=== PATIENT | male | born 1950 | race Caucasian/White ===

== ENCOUNTER 2016-04-18 10:30 | Inpatient (IN) | payer OTHER ==
[2016-04-18] VITALS (10 sets, daily range): BP systolic 100–157; BP diastolic 61–87
[~2016-04-18 10:30] MED LIST: ADVAIR 500/501 DISK IH; ATARAX,VISTARIL50 MG PO; Avelox PO; CONTRAVE ER 8-1 EACH PO; CYANOCOBALAM1000 MCG PO; Ceftin PO; DULERA 200 MCG/13 GM IH; DUONEB 2.5-0.5 M3 ML IH; DuoNeb IH; FUROSEMIDE40 MG PO; Habitrol,Nicoderm CQ TD; K-DUR10 MEQ PO; KLOR-CON 1010 ME1 PO; LEVAQUIN500 MG PO; LO-DOSE ASPIRIN81 M1 PO; Levaquin PO; PREDNISONE20 MG PO; PROAIR HFA8.5 GM IH; PROVENTIL,2.5 MG/0.5 IH; Proventil,Ventolin H IH; SPIRIVA1 INHALATI IH; THEO-DUR,THEOC300 MG PO; THEOPHYLLINE A300 M1 PO; THEOPHYLLINE PO; Theo-Dur,Theocron PO; VENTOLIN5 MG/1 ML IH; predniSONE PO
[2016-04-18 11:04] LABS: EOSINOPHIL (%) 0 % (0-5); HEMATOCRIT 41.7 % (38.0-50.0); IMMATURE GRANULOCYTE (%) 0.5 % (0.0-0.7); IMMATURE GRANULOCYTE COUNT 0.6 K/uL; MCH 32.4 PG (29.0-34.0); MCHC 29.7 G/DL (30.0-36.0); MCV 108.9 FL (86-99); MEAN PLAT.VOLUME 9.8 uM^3 (9.0-12.4); MONOCYTE (%) 10.5 % (3-12); MONOCYTE COUNT 1.3 K/uL (0-0.8); NEUTROPHIL (%) 81.1 % (45-76); NEUTROPHIL COUNT 10.2 K/uL (1.8-6.4); PLATELET COUNT 305 K/uL (156-360); RBC DIS.WIDTH-CV 13.7 % (11.8-14.6); RBC DIS.WIDTH-SD 53.1 % (39-53); RED BLOOD COUNT 3.83 M/uL (4.00-5.50); WHITE BLOOD COUNT 12.5 K/uL (4.1-10.2)
[2016-04-18 11:14] LABS: VENOUS PCO2 111 mm Hg (41-51)
[2016-04-18 11:15] LABS: CARBON DIOXIDE (BICARBONATE) > 40.0 MEQ/L (20-31)
[2016-04-18 11:27] LABS: TROP-I INTERPRETATION NEGATIVE; TROPONIN-I 0.02 ng/mL (0.0-0.30)
[2016-04-18 11:52] LABS: CHLORIDE 91 mEq/L (99-109)
[2016-04-18 11:53] LABS: MAGNESIUM 2.9 mg/dL (1.3-2.7); SODIUM 139 mEq/L (136-147)
[2016-04-18 11:54] LABS: GLUCOSE 195 mg/dL (70-99)
[2016-04-18 11:56] LABS: ANION GAP 11 MEQ/L (2-14)
[2016-04-18 11:58] LABS: GFR ESTIMATE (CALCULATED) > 59 mL/min/
[2016-04-18 11:59] LABS: UREA NITROGEN (BUN) 19 mg/dL (9-23)
[2016-04-18 12:27] LABS: BASE EXCESS 13.8 mEq/L (-3 to +3); BICARBONATE 46.2 mEq/L (22-26); CARBOXY HGB 2.5 % (0-5); COMMENTS - BLOOD GASES A+; DEVICE NIV; FI02 40 %; METHEMOGLOBIN 1.1 % (0-1.5); MODE SPONT; PCO2 113 mm Hg (35-45); PO2 83 mm Hg (80-100); SITE LR; pH 7.22 (7.35-7.45)
[2016-04-18 12:28] LABS: PEEP 8 CM/H20; PRES. SUPPORT 15 CM/H2O; TOTAL RESP RATE 12 resp/min
[2016-04-18 13:29] LABS: D-DIMER ELISA 1.91 mg/L FEU (< 0.57)
[2016-04-18 17:11] LABS: BASE EXCESS 19.2 mEq/L (-3 to +3); BICARBONATE 49.1 mEq/L (22-26); CARBOXY HGB 2.4 % (0-5); METHEMOGLOBIN 1.7 % (0-1.5)
[2016-04-18 17:12] LABS: COMMENTS - BLOOD GASES AC+; CONTINUOUS POS AIRWAY PRESSURE 8 cm H2O; DEVICE 840 VENTILATOR; FI02 35 %; MODE NIPPV; PCO2 89 mm Hg (35-45); PO2 64 mm Hg (80-100); PRES. SUPPORT 15 CM/H2O; SITE LR; TOTAL RESP RATE 22 resp/min; pH 7.35 (7.35-7.45)
[2016-04-18 17:58] LABS: METH RESISTANT S AUREUS PCR NEGATIVE (NEGATIVE)
[2016-04-18 18:00] LABS: PROBE CHECK PASS; SPECIMEN PROCESSING CONTROL PASS
[2016-04-18 19:06] LABS: TROP-I INTERPRETATION NEGATIVE; TROPONIN-I 0.02 ng/mL (0.0-0.30)
[2016-04-19] VITALS (21 sets, daily range): BP systolic 100–144; BP diastolic 33–93
[2016-04-19 01:29] LABS: TROP-I INTERPRETATION NEGATIVE; TROPONIN-I < 0.01 ng/mL (0.0-0.30)
[2016-04-19 06:07] LABS: HEMATOCRIT 37.3 % (38.0-50.0); MCH 31.6 PG (29.0-34.0); MCHC 29.5 G/DL (30.0-36.0); MCV 107.2 FL (86-99); PLATELET COUNT 275 K/uL (156-360); RED BLOOD COUNT 3.48 M/uL (4.00-5.50); WHITE BLOOD COUNT 9.7 K/uL (4.1-10.2)
[2016-04-19 06:34] LABS: TROP-I INTERPRETATION NEGATIVE; TROPONIN-I 0.02 ng/mL (0.0-0.30)
[2016-04-19 06:41] LABS: ANION GAP ND MEQ/L (2-14); CHLORIDE 90 MEQ/L (99-109); GFR ESTIMATE (CALCULATED) > 59 mL/min/; GLUCOSE 162 mg/dL (70-99); MAGNESIUM 2.6 mg/dl (1.3-2.7); POTASSIUM 4.9 MEQ/L (3.7-5.4); SAMPLE HEMOLYSIS CHECK 0; SAMPLE ICTERIC CHECK 0; SAMPLE LIPEMIA CHECK 0; SODIUM 138 MEQ/L (136-147); UREA NITROGEN (BUN) 21 mg/dL (9-23)
[2016-04-19 06:45] LABS: CARBON DIOXIDE (BICARBONATE) > 40.0 MEQ/L (20-31)
[2016-04-20] VITALS (14 sets, daily range): BP systolic 118–164; BP diastolic 59–82
[2016-04-20 05:55] LABS: HEMATOCRIT 38.6 % (38.0-50.0); MCH 32.4 PG (29.0-34.0); MCHC 30.3 G/DL (30.0-36.0); MCV 106.9 FL (86-99); PLATELET COUNT 279 K/uL (156-360); RBC DIS.WIDTH-CV 13.8 % (11.8-14.6); RBC DIS.WIDTH-SD 54.3 % (39-53); RED BLOOD COUNT 3.61 M/uL (4.00-5.50); WHITE BLOOD COUNT 10.7 K/uL (4.1-10.2)
[2016-04-20 06:33] LABS: ANION GAP ND MEQ/L (2-14); CARBON DIOXIDE (BICARBONATE) > 40.0 MEQ/L (20-31); CHLORIDE 90 MEQ/L (99-109); GFR ESTIMATE (CALCULATED) > 59 mL/min/; GLUCOSE 169 mg/dL (70-99); MAGNESIUM 2.8 mg/dl (1.3-2.7); POTASSIUM 5.2 MEQ/L (3.7-5.4); SAMPLE HEMOLYSIS CHECK 0; SAMPLE ICTERIC CHECK 0; SAMPLE LIPEMIA CHECK 0; SODIUM 140 MEQ/L (136-147); UREA NITROGEN (BUN) 21 mg/dL (9-23)
[2016-04-20 06:39] LABS: THEOPHYLLINE 25.3 MCG/ML (10-20)
[2016-04-20 07:02] LABS: DIGOXIN 0.6 ng/mL (0.8-2.0)
[2016-04-21] VITALS (19 sets, daily range): BP systolic 110–153; BP diastolic 54–120
[2016-04-21 07:53] LABS: EOSINOPHIL (%) 0 % (0-5); HEMATOCRIT 43.4 % (38.0-50.0); IMMATURE GRANULOCYTE (%) 0.8 % (0.0-0.7); IMMATURE GRANULOCYTE COUNT 0.1 K/uL; LYMPHOCYTE COUNT 0.5 K/uL (1.0-2.8); MCH 31.9 PG (29.0-34.0); MCHC 28.3 G/DL (30.0-36.0); MEAN PLAT.VOLUME 9.9 uM^3 (9.0-12.4); MONOCYTE (%) 6.5 % (3-12); MONOCYTE COUNT 0.6 K/uL (0-0.8); NEUTROPHIL COUNT 8.5 K/uL (1.8-6.4); PLATELET COUNT 286 K/uL (156-360); RBC DIS.WIDTH-SD 56.8 % (39-53); RED BLOOD COUNT 3.86 M/uL (4.00-5.50); WHITE BLOOD COUNT 9.7 K/uL (4.1-10.2)
[2016-04-21 07:54] LABS: MCV 112.4 FL (86-99)
[2016-04-21 07:59] LABS: ANION GAP ND MEQ/L (2-14); CHLORIDE 91 MEQ/L (99-109); GFR ESTIMATE (CALCULATED) > 59 mL/min/; GLUCOSE 160 mg/dL (70-99); MAGNESIUM 2.8 mg/dl (1.3-2.7); POTASSIUM 5.8 MEQ/L (3.7-5.4); SAMPLE HEMOLYSIS CHECK 0; SAMPLE ICTERIC CHECK 0; SAMPLE LIPEMIA CHECK 0; SODIUM 142 MEQ/L (136-147); THEOPHYLLINE 12.9 MCG/ML (10-20); UREA NITROGEN (BUN) 27 mg/dL (9-23)
[2016-04-21 08:03] LABS: CARBON DIOXIDE (BICARBONATE) > 40.0 MEQ/L (20-31)
[2016-04-21 09:07] LABS: CARBOXY HGB 2.5 % (0-5); METHEMOGLOBIN 1.7 % (0-1.5); PCO2 > 129 mm Hg (35-45); PO2 93 mm Hg (80-100)
[2016-04-21 09:07] LABS: DIGOXIN 0.4 ng/mL (0.8-2.0)
[2016-04-21 09:08] LABS: COMMENTS - BLOOD GASES C+; DEVICE HFNC; O2 FLOW 15 L/MIN; SITE RR; TOTAL RESP RATE 20 resp/min; pH 7.21 (7.35-7.45)
[2016-04-21 11:51] LABS: BASE EXCESS 23.2 mEq/L (-3 to +3); BICARBONATE 54.1 mEq/L (22-26); CARBOXY HGB 2.5 % (0-5); COMMENTS - BLOOD GASES C+; CONTINUOUS POS AIRWAY PRESSURE 8 cm H2O; DEVICE MASK VENT; FI02 40 %; METHEMOGLOBIN 1.8 % (0-1.5); MODE SPONT; PCO2 98 mm Hg (35-45); PO2 65 mm Hg (80-100); PRES. SUPPORT 15 CM/H2O; SITE LR; TOTAL RESP RATE 26 resp/min; pH 7.35 (7.35-7.45)
[2016-04-21 12:47] LABS: CREATINE KINASE 22 IU/L (1-294); TOTAL CK 22 IU/L (1-294)
[2016-04-21 12:49] LABS: CK-MB 1.3 ng/mL (0.0-4.9); TROP-I INTERPRETATION NEGATIVE; TROPONIN-I < 0.01 ng/mL (0.0-0.30)
[2016-04-21 17:10] LABS: CREATINE KINASE 32 IU/L (1-294); TOTAL CK 32 IU/L (1-294)
[2016-04-21 17:17] LABS: TROP-I INTERPRETATION NEGATIVE; TROPONIN-I < 0.01 ng/mL (0.0-0.30)
[2016-04-21 23:22] LABS: CREATINE KINASE 23 IU/L (1-294); TOTAL CK 23 IU/L (1-294)
[2016-04-21 23:27] LABS: TROP-I INTERPRETATION NEGATIVE; TROPONIN-I 0.01 ng/mL (0.0-0.30)
[2016-04-21 23:28] LABS: CK-MB 0.8 ng/mL (0.0-4.9)
[2016-04-22] VITALS (20 sets, daily range): BP systolic 117–160; BP diastolic 52–84
[2016-04-22 05:10] LABS: CHLORIDE 93 mEq/L (99-109); POTASSIUM 5.3 mEq/L (3.7-5.4); SODIUM 140 mEq/L (136-147)
[2016-04-22 05:12] LABS: GLUCOSE 191 mg/dL (70-99)
[2016-04-22 05:13] LABS: ANION GAP 7 MEQ/L (2-14)
[2016-04-22 05:16] LABS: GFR ESTIMATE (CALCULATED) > 59 mL/min/
[2016-04-22 05:17] LABS: UREA NITROGEN (BUN) 30 mg/dL (9-23)
[2016-04-22 05:18] LABS: CREATINE KINASE 18 IU/L (1-294); TOTAL CK 18 IU/L (1-294)
[2016-04-22 05:21] LABS: TROP-I INTERPRETATION NEGATIVE; TROPONIN-I 0.02 ng/mL (0.0-0.30)
[2016-04-22 05:25] LABS: CK-MB 0.8 ng/mL (0.0-4.9)
[2016-04-22 09:51] LABS: MAGNESIUM 3.3 mg/dL (1.3-2.7)
[2016-04-23] VITALS (14 sets, daily range): BP systolic 113–164; BP diastolic 42–76
[2016-04-23 07:00] LABS: HEMATOCRIT 40.4 % (38.0-50.0); MCH 31.3 PG (29.0-34.0); MCV 104.7 FL (86-99); MEAN PLAT.VOLUME 9.7 uM^3 (9.0-12.4); PLATELET COUNT 247 K/uL (156-360); RBC DIS.WIDTH-CV 13.9 % (11.8-14.6); RBC DIS.WIDTH-SD 53.3 % (39-53); RED BLOOD COUNT 3.86 M/uL (4.00-5.50); WHITE BLOOD COUNT 4.7 K/uL (4.1-10.2)
[2016-04-23 07:10] LABS: ANION GAP 4 MEQ/L (2-14); CHLORIDE 95 MEQ/L (99-109); GFR ESTIMATE (CALCULATED) > 59 mL/min/; GLUCOSE 203 mg/dL (70-99); MAGNESIUM 2.4 mg/dl (1.3-2.7); POTASSIUM 4.4 MEQ/L (3.7-5.4); SAMPLE HEMOLYSIS CHECK 0; SAMPLE ICTERIC CHECK 0; SAMPLE LIPEMIA CHECK 0; SODIUM 139 MEQ/L (136-147); UREA NITROGEN (BUN) 29 mg/dL (9-23)
[2016-04-24] VITALS (12 sets, daily range): BP systolic 0–160; BP diastolic 0–73
[2016-04-24 06:03] LABS: HEMATOCRIT 44.3 % (38.0-50.0); MCH 31.3 PG (29.0-34.0); MCHC 29.3 G/DL (30.0-36.0); MCV 106.7 FL (86-99); MEAN PLAT.VOLUME 9.7 uM^3 (9.0-12.4); PLATELET COUNT 273 K/uL (156-360); RBC DIS.WIDTH-CV 13.7 % (11.8-14.6); RBC DIS.WIDTH-SD 53.6 % (39-53); RED BLOOD COUNT 4.15 M/uL (4.00-5.50); WHITE BLOOD COUNT 5.7 K/uL (4.1-10.2)
[2016-04-24 07:09] LABS: ANION GAP 6 MEQ/L (2-14); CHLORIDE 94 MEQ/L (99-109); GFR ESTIMATE (CALCULATED) > 59 mL/min/; GLUCOSE 214 mg/dL (70-99); MAGNESIUM 2.6 mg/dl (1.3-2.7); POTASSIUM 4.7 MEQ/L (3.7-5.4); SAMPLE HEMOLYSIS CHECK 0; SAMPLE ICTERIC CHECK 0; SAMPLE LIPEMIA CHECK 0; SODIUM 140 MEQ/L (136-147); UREA NITROGEN (BUN) 38 mg/dL (9-23)
[2016-04-24 10:19] LABS: BASE EXCESS 18.3 mEq/L (-3 to +3); BICARBONATE 52.3 mEq/L (22-26); CARBOXY HGB 2.4 % (0-5); COMMENTS - BLOOD GASES A+C+; DEVICE NC; METHEMOGLOBIN 1.8 % (0-1.5); O2 FLOW 4 L/MIN; PCO2 125 mm Hg (35-45); PO2 69 mm Hg (80-100); SITE LR; TOTAL RESP RATE 28 resp/min
[2016-04-24 10:20] LABS: pH 7.23 (7.35-7.45)
[2016-04-25] VITALS (20 sets, daily range): BP systolic 110–166; BP diastolic 47–81
[2016-04-25 05:50] LABS: HEMATOCRIT 43.6 % (38.0-50.0); MCHC 29.6 G/DL (30.0-36.0); MCV 104.8 FL (86-99); MEAN PLAT.VOLUME 10.3 uM^3 (9.0-12.4); PLATELET COUNT 241 K/uL (156-360); RBC DIS.WIDTH-CV 13.6 % (11.8-14.6); RBC DIS.WIDTH-SD 51.9 % (39-53); RED BLOOD COUNT 4.16 M/uL (4.00-5.50); WHITE BLOOD COUNT 4.8 K/uL (4.1-10.2)
[2016-04-25 06:59] LABS: ANION GAP 8 MEQ/L (2-14); CHLORIDE 93 MEQ/L (99-109); GFR ESTIMATE (CALCULATED) > 59 mL/min/; GLUCOSE 253 mg/dL (70-99); MAGNESIUM 2.5 mg/dl (1.3-2.7); POTASSIUM 4.3 MEQ/L (3.7-5.4); SAMPLE HEMOLYSIS CHECK 0; SAMPLE ICTERIC CHECK 0; SAMPLE LIPEMIA CHECK 0; SODIUM 141 MEQ/L (136-147); UREA NITROGEN (BUN) 33 mg/dL (9-23)
[2016-04-25 12:17] LABS: BASE EXCESS 20.2 mEq/L (-3 to +3); BICARBONATE 50.8 mEq/L (22-26); CARBOXY HGB 2.4 % (0-5); METHEMOGLOBIN 1.6 % (0-1.5); PO2 60 mm Hg (80-100)
[2016-04-25 12:18] LABS: COMMENTS - BLOOD GASES A+C+; DEVICE NC; O2 FLOW 3 L/MIN; PCO2 90 mm Hg (35-45); SITE LR; TOTAL RESP RATE 23 resp/min; pH 7.36 (7.35-7.45)
[2016-04-26] VITALS (16 sets, daily range): BP systolic 111–165; BP diastolic 41–70
[2016-04-26 06:16] LABS: HEMATOCRIT 42.9 % (38.0-50.0); MCH 30.8 PG (29.0-34.0); MCHC 29.6 G/DL (30.0-36.0); MCV 103.9 FL (86-99); MEAN PLAT.VOLUME 10.3 uM^3 (9.0-12.4); PLATELET COUNT 204 K/uL (156-360); RBC DIS.WIDTH-CV 13.7 % (11.8-14.6); RBC DIS.WIDTH-SD 51.4 % (39-53); RED BLOOD COUNT 4.13 M/uL (4.00-5.50)
[2016-04-26 06:20] LABS: WHITE BLOOD COUNT 6.4 K/uL (4.1-10.2)
[2016-04-26 06:25] LABS: ANION GAP ND MEQ/L (2-14); CARBON DIOXIDE (BICARBONATE) > 40.0 MEQ/L (20-31); CHLORIDE 91 MEQ/L (99-109); GFR ESTIMATE (CALCULATED) > 59 mL/min/; GLUCOSE 274 mg/dL (70-99); MAGNESIUM 2.3 mg/dl (1.3-2.7); POTASSIUM 3.8 MEQ/L (3.7-5.4); SAMPLE HEMOLYSIS CHECK 0; SAMPLE ICTERIC CHECK 0; SAMPLE LIPEMIA CHECK 0; SODIUM 141 MEQ/L (136-147); UREA NITROGEN (BUN) 30 mg/dL (9-23)
[2016-04-27] VITALS (15 sets, daily range): BP systolic 113–164; BP diastolic 41–74
[2016-04-27 05:29] LABS: HEMATOCRIT 43.3 % (38.0-50.0); MCH 31.9 PG (29.0-34.0); MCHC 30.3 G/DL (30.0-36.0); MCV 105.4 FL (86-99); MEAN PLAT.VOLUME 11.1 uM^3 (9.0-12.4); PLATELET COUNT 185 K/uL (156-360); RBC DIS.WIDTH-CV 13.4 % (11.8-14.6); RBC DIS.WIDTH-SD 51.6 % (39-53); RED BLOOD COUNT 4.11 M/uL (4.00-5.50)
[2016-04-27 05:59] LABS: ANION GAP ND MEQ/L (2-14); CHLORIDE 90 MEQ/L (99-109); GFR ESTIMATE (CALCULATED) > 59 mL/min/; GLUCOSE 310 mg/dL (70-99); MAGNESIUM 2.3 mg/dl (1.3-2.7); POTASSIUM 3.9 MEQ/L (3.7-5.4); SAMPLE HEMOLYSIS CHECK 0; SAMPLE ICTERIC CHECK 0; SAMPLE LIPEMIA CHECK 0; SODIUM 141 MEQ/L (136-147); UREA NITROGEN (BUN) 31 mg/dL (9-23)
[2016-04-27 06:02] LABS: CARBON DIOXIDE (BICARBONATE) > 40.0 MEQ/L (20-31)
[2016-04-27 22:14] LABS: POINT-OF-CARE METER ID UU13113748
[2016-04-28] VITALS (10 sets, daily range): BP systolic 129–162; BP diastolic 50–105
[2016-04-28 05:30] LABS: POINT-OF-CARE METER ID UU13113748
[2016-04-28 06:08] LABS: HEMATOCRIT 44.9 % (38.0-50.0); MCH 31.8 PG (29.0-34.0); MCHC 30.1 G/DL (30.0-36.0); MCV 105.9 FL (86-99); MEAN PLAT.VOLUME 11.7 uM^3 (9.0-12.4); PLATELET COUNT 167 K/uL (156-360); RBC DIS.WIDTH-CV 13.5 % (11.8-14.6); RBC DIS.WIDTH-SD 52.3 % (39-53); RED BLOOD COUNT 4.24 M/uL (4.00-5.50); WHITE BLOOD COUNT 7.6 K/uL (4.1-10.2)
[2016-04-28 06:37] LABS: ANION GAP ND MEQ/L (2-14); CHLORIDE 90 MEQ/L (99-109); GFR ESTIMATE (CALCULATED) > 59 mL/min/; GLUCOSE 276 mg/dL (70-99); MAGNESIUM 2.4 mg/dl (1.3-2.7); POTASSIUM 3.8 MEQ/L (3.7-5.4); SAMPLE HEMOLYSIS CHECK 0; SAMPLE ICTERIC CHECK 0; SAMPLE LIPEMIA CHECK 0; SODIUM 143 MEQ/L (136-147); UREA NITROGEN (BUN) 30 mg/dL (9-23)
[2016-04-28 06:38] LABS: CARBON DIOXIDE (BICARBONATE) > 40.0 MEQ/L (20-31)
[2016-04-28 08:27] LABS: POINT-OF-CARE METER ID UU13113748
[2016-04-29] VITALS: BP 139/69
[2016-04-29 04:00] VITALS: BP 150/64
[2016-04-29 05:29] LABS: MCH 31.1 PG (29.0-34.0); MCHC 28.7 G/DL (30.0-36.0); MCV 108.2 FL (86-99); MEAN PLAT.VOLUME 11.4 uM^3 (9.0-12.4); PLATELET COUNT 141 K/uL (156-360); RBC DIS.WIDTH-CV 13.5 % (11.8-14.6); RBC DIS.WIDTH-SD 53.2 % (39-53); RED BLOOD COUNT 4.25 M/uL (4.00-5.50); WHITE BLOOD COUNT 9.8 K/uL (4.1-10.2)
[2016-04-29 06:11] LABS: ANION GAP ND MEQ/L (2-14); CHLORIDE 89 MEQ/L (99-109); GFR ESTIMATE (CALCULATED) > 59 mL/min/; GLUCOSE 208 mg/dL (70-99); MAGNESIUM 2.4 mg/dl (1.3-2.7); POTASSIUM 3.7 MEQ/L (3.7-5.4); SAMPLE HEMOLYSIS CHECK 0; SAMPLE ICTERIC CHECK 0; SAMPLE LIPEMIA CHECK 0; SODIUM 144 MEQ/L (136-147); UREA NITROGEN (BUN) 31 mg/dL (9-23)
[2016-04-29 06:20] LABS: CARBON DIOXIDE (BICARBONATE) > 40.0 MEQ/L (20-31)
[2016-04-29 08:00] VITALS: BP 149/61
[2016-04-29 12:00] VITALS: BP 142/61
[2016-04-29 12:22] LABS: POINT-OF-CARE METER ID UU14162636
[2016-04-29 16:00] VITALS: BP 148/76
[2016-04-29 18:01] LABS: POINT-OF-CARE METER ID UU14162636
[2016-04-29 20:00] VITALS: BP 139/63
[2016-04-29 21:54] LABS: POINT-OF-CARE METER ID UU14162636
[2016-04-30] VITALS: BP 134/65
[2016-04-30 04:10] VITALS: BP 151/65
[2016-04-30 04:53] LABS: HEMATOCRIT 45.1 % (38.0-50.0); MCH 31.9 PG (29.0-34.0); MCHC 29.9 G/DL (30.0-36.0); MCV 106.6 FL (86-99); MEAN PLAT.VOLUME 11.3 uM^3 (9.0-12.4); PLATELET COUNT 126 K/uL (156-360); RBC DIS.WIDTH-CV 13.5 % (11.8-14.6); RBC DIS.WIDTH-SD 52.6 % (39-53); RED BLOOD COUNT 4.23 M/uL (4.00-5.50); WHITE BLOOD COUNT 10.8 K/uL (4.1-10.2)
[2016-04-30 05:07] LABS: CHLORIDE 88 mEq/L (99-109); POTASSIUM 4.7 mEq/L (3.7-5.4); SODIUM 147 mEq/L (136-147)
[2016-04-30 05:08] LABS: MAGNESIUM 2.5 mg/dL (1.3-2.7)
[2016-04-30 05:09] LABS: GLUCOSE 169 mg/dL (70-99)
[2016-04-30 05:13] LABS: GFR ESTIMATE (CALCULATED) > 59 mL/min/
[2016-04-30 05:14] LABS: UREA NITROGEN (BUN) 31 mg/dL (9-23)
[2016-04-30 05:16] LABS: CARBON DIOXIDE (BICARBONATE) > 40.0 mEq/L (20-31)
[2016-04-30 05:25] LABS: DIGOXIN 0.7 ng/mL (0.8-2.0)
[2016-04-30 08:00] VITALS: BP 135/62
[2016-04-30 08:31] LABS: POINT-OF-CARE METER ID UU13113731
[2016-04-30 12:00] VITALS: BP 128/31
[2016-04-30 16:00] VITALS: BP 140/53
[2016-04-30 16:57] LABS: POINT-OF-CARE METER ID UU13113731
[2016-04-30 20:00] VITALS: BP 144/52
[2016-04-30 21:20] LABS: POINT-OF-CARE METER ID UU13113731; POINT-OF-CARE USER ID PHATLC
[2016-05-01] VITALS (7 sets, daily range): BP systolic 115–147; BP diastolic 43–72
[2016-05-01 07:43] LABS: ANION GAP ND MEQ/L (2-14); CHLORIDE 86 MEQ/L (99-109); GFR ESTIMATE (CALCULATED) > 59 mL/min/; GLUCOSE 167 mg/dL (70-99); POTASSIUM 3.9 MEQ/L (3.7-5.4); SAMPLE HEMOLYSIS CHECK 0; SAMPLE ICTERIC CHECK 0; SAMPLE LIPEMIA CHECK 0; SODIUM 143 MEQ/L (136-147); UREA NITROGEN (BUN) 26 mg/dL (9-23)
[2016-05-01 07:44] LABS: CARBON DIOXIDE (BICARBONATE) > 40.0 MEQ/L (20-31)
[2016-05-01 10:57] LABS: POINT-OF-CARE METER ID UU14174216
[2016-05-01 16:03] LABS: POINT-OF-CARE METER ID UU14174216
[2016-05-02 03:40] VITALS: BP 148/68
[2016-05-02 07:53] LABS: POINT-OF-CARE METER ID UU13113698
[2016-05-02 09:00] VITALS: BP 121/58
[2016-05-02 10:53] LABS: POINT-OF-CARE METER ID UU13113698
[2016-05-02 12:21] VITALS: BP 134/63
[2016-05-02 15:33] VITALS: BP 143/66
[2016-05-02 15:45] LABS: POINT-OF-CARE METER ID UU13113698
[2016-05-02 18:52] VITALS: BP 142/66
[2016-05-03 00:01] VITALS: BP 131/64
[2016-05-03 04:06] VITALS: BP 132/64
[2016-05-03 06:40] LABS: HEMATOCRIT 44.4 % (38.0-50.0); MCH 31.6 PG (29.0-34.0); MCHC 29.3 G/DL (30.0-36.0); MCV 107.8 FL (86-99); MEAN PLAT.VOLUME 11.8 uM^3 (9.0-12.4); PLATELET COUNT 114 K/uL (156-360); RBC DIS.WIDTH-CV 13.7 % (11.8-14.6); RBC DIS.WIDTH-SD 53.7 % (39-53); RED BLOOD COUNT 4.12 M/uL (4.00-5.50); WHITE BLOOD COUNT 9.7 K/uL (4.1-10.2)
[2016-05-03 06:59] LABS: BASE EXCESS 29.7 mEq/L (-3 to +3); CARBOXY HGB 3.4 % (0-5); COMMENTS - BLOOD GASES A+C+; DEVICE NC; METHEMOGLOBIN 1.4 % (0-1.5); O2 FLOW 3 L/MIN; PCO2 94 mm Hg (35-45); PO2 71 mm Hg (80-100); SITE RR; TOTAL RESP RATE 22 resp/min; pH 7.42 (7.35-7.45)
[2016-05-03 07:10] LABS: ANION GAP ND MEQ/L (2-14); CHLORIDE 85 MEQ/L (99-109); GFR ESTIMATE (CALCULATED) > 59 mL/min/; GLUCOSE 131 mg/dL (70-99); POTASSIUM 4.1 MEQ/L (3.7-5.4); SAMPLE HEMOLYSIS CHECK 1; SAMPLE ICTERIC CHECK 0; SAMPLE LIPEMIA CHECK 0; SODIUM 141 MEQ/L (136-147); UREA NITROGEN (BUN) 21 mg/dL (9-23)
[2016-05-03 07:28] LABS: CARBON DIOXIDE (BICARBONATE) > 40.0 MEQ/L (20-31)
[2016-05-03 08:07] LABS: POINT-OF-CARE METER ID UU14174216; POINT-OF-CARE USER ID NUTSLF44
[2016-05-03 08:20] VITALS: BP 125/66
[2016-05-03 11:46] LABS: POINT-OF-CARE METER ID UU14174216; POINT-OF-CARE USER ID NUTSLF44
[2016-05-03 12:07] VITALS: BP 129/61
[2016-05-03 16:04] VITALS: BP 132/64
[2016-05-03 19:20] VITALS: BP 126/58
[2016-05-03 22:03] LABS: POINT-OF-CARE METER ID UU14149396
[2016-05-04] VITALS: BP 132/60
[2016-05-04 08:08] VITALS: BP 118/55
[2016-05-04 08:18] LABS: POINT-OF-CARE METER ID UU13113807
[2016-05-04 12:25] LABS: POINT-OF-CARE METER ID UU14149398; POINT-OF-CARE USER ID 606021404
[2016-05-04 16:27] VITALS: BP 116/59
[2016-05-04 16:55] LABS: POINT-OF-CARE METER ID UU13113807
[2016-05-04 21:00] VITALS: BP 125/78
[2016-05-04 21:55] LABS: POINT-OF-CARE METER ID UU14149398
[2016-05-04 23:35] VITALS: BP 131/63
[2016-05-05 04:00] VITALS: BP 132/85
[2016-05-05 08:16] LABS: POINT-OF-CARE METER ID UU14149398
[2016-05-05 08:23] VITALS: BP 128/60
[2016-05-05 09:00] LABS: ANION GAP ND MEQ/L (2-14); CHLORIDE 86 MEQ/L (99-109); GFR ESTIMATE (CALCULATED) > 59 mL/min/; GLUCOSE 146 mg/dL (70-99); POTASSIUM 3.9 MEQ/L (3.7-5.4); SAMPLE HEMOLYSIS CHECK 0; SAMPLE ICTERIC CHECK 0; SAMPLE LIPEMIA CHECK 0; SODIUM 142 MEQ/L (136-147); THEOPHYLLINE < 2.5 MCG/ML (10-20); UREA NITROGEN (BUN) 18 mg/dL (9-23)
[2016-05-05 09:05] LABS: CARBON DIOXIDE (BICARBONATE) > 40.0 MEQ/L (20-31)
[2016-05-05 12:12] LABS: BASE EXCESS 31.2 mEq/L (-3 to +3); BICARBONATE 64.6 mEq/L (22-26); CARBOXY HGB 3.2 % (0-5); METHEMOGLOBIN 1.4 % (0-1.5); PCO2 117 mm Hg (35-45); PO2 58 mm Hg (80-100); pH 7.35 (7.35-7.45)
[2016-05-05 12:13] LABS: COMMENTS - BLOOD GASES A+C+; DEVICE NC; O2 FLOW 3 L/MIN; SITE RR
[2016-05-05 12:35] LABS: POINT-OF-CARE METER ID UU14149398
[2016-05-05 16:19] LABS: POINT-OF-CARE METER ID UU14149398
[2016-05-05 17:11] VITALS: BP 105/56
[2016-05-05 21:57] LABS: POINT-OF-CARE METER ID UU14149398
[2016-05-06 00:50] VITALS: BP 144/73
[2016-05-06 08:08] VITALS: BP 154/65
[2016-05-06 08:40] LABS: POINT-OF-CARE METER ID UU13113807
[2016-05-06 10:35] LABS: BASE EXCESS 28.6 mEq/L (-3 to +3); BICARBONATE 61.5 mEq/L (22-26); CARBOXY HGB 3.6 % (0-5); METHEMOGLOBIN 1.4 % (0-1.5); O2 FLOW 3 L/MIN; PCO2 114 mm Hg (35-45); PO2 57 mm Hg (80-100); SITE RR; pH 7.34 (7.35-7.45)
[2016-05-06 10:36] LABS: DEVICE NC
[2016-05-06 12:10] LABS: POINT-OF-CARE METER ID UU14149398
[2016-05-06 16:14] VITALS: BP 135/69
[2016-05-06 16:28] LABS: POINT-OF-CARE METER ID UU14149398
[2016-05-06 20:00] VITALS: BP 137/61
[2016-05-06 21:48] LABS: POINT-OF-CARE METER ID UU13113807
[2016-05-07] VITALS: BP 140/70
[2016-05-07 07:54] VITALS: BP 137/73
[2016-05-07 08:24] LABS: POINT-OF-CARE METER ID UU14149398
[2016-05-07 11:30] VITALS: BP 133/59
[2016-05-07 11:33] VITALS: BP 145/76
[2016-05-07 12:28] LABS: POINT-OF-CARE METER ID UU14149398
[2016-05-07 15:32] VITALS: BP 123/68
[2016-05-07 17:01] LABS: POINT-OF-CARE METER ID UU14149398
[2016-05-07 21:00] LABS: POINT-OF-CARE METER ID UU14149398
[2016-05-08] VITALS: BP 128/68
[2016-05-08 06:31] LABS: ANION GAP ND MEQ/L (2-14); CHLORIDE 87 MEQ/L (99-109); GFR ESTIMATE (CALCULATED) > 59 mL/min/; GLUCOSE 130 mg/dL (70-99); POTASSIUM 4.1 MEQ/L (3.7-5.4); SAMPLE HEMOLYSIS CHECK 0; SAMPLE ICTERIC CHECK 0; SAMPLE LIPEMIA CHECK 0; SODIUM 145 MEQ/L (136-147); UREA NITROGEN (BUN) 19 mg/dL (9-23)
[2016-05-08 06:32] LABS: CARBON DIOXIDE (BICARBONATE) > 40.0 MEQ/L (20-31)
[2016-05-08 06:35] LABS: EOSINOPHIL (%) 0.8 % (0-5); EOSINOPHIL COUNT 0.1 K/uL (0-0.3); HEMATOCRIT 42.4 % (38.0-50.0); IMMATURE GRANULOCYTE (%) 0.2 % (0.0-0.7); LYMPHOCYTE COUNT 0.9 K/uL (1.0-2.8); MCHC 28.3 G/DL (30.0-36.0); MCV 109.6 FL (86-99); MEAN PLAT.VOLUME 11.7 uM^3 (9.0-12.4); MONOCYTE (%) 6.2 % (3-12); MONOCYTE COUNT 0.4 K/uL (0-0.8); NEUTROPHIL (%) 78.2 % (45-76); NEUTROPHIL COUNT 4.9 K/uL (1.8-6.4); PLATELET COUNT 91 K/uL (156-360); RBC DIS.WIDTH-CV 13.8 % (11.8-14.6); RBC DIS.WIDTH-SD 55.3 % (39-53); RED BLOOD COUNT 3.87 M/uL (4.00-5.50)
[2016-05-08 06:36] LABS: WHITE BLOOD COUNT 6.3 K/uL (4.1-10.2)
[2016-05-08 07:24] VITALS: BP 130/61
[2016-05-08 07:37] LABS: POINT-OF-CARE METER ID UU13113807
[2016-05-08 11:40] VITALS: BP 120/85
[2016-05-08 11:55] LABS: POINT-OF-CARE METER ID UU13113807
[2016-05-08 15:25] VITALS: BP 126/62
[2016-05-08 17:22] LABS: POINT-OF-CARE METER ID UU13113807
[2016-05-08 21:22] LABS: POINT-OF-CARE METER ID UU13113807
[2016-05-08 23:49] VITALS: BP 126/61
[2016-05-09 07:40] VITALS: BP 142/80
[2016-05-09 08:32] LABS: POINT-OF-CARE METER ID UU13113807
[2016-05-09 11:44] VITALS: BP 128/55
[2016-05-09 11:48] LABS: POINT-OF-CARE METER ID UU13113807
[2016-05-09 15:51] VITALS: BP 136/73
[2016-05-09 17:05] LABS: POINT-OF-CARE METER ID UU13113807
[2016-05-09 19:56] VITALS: BP 136/63
[2016-05-09 20:03] LABS: POINT-OF-CARE METER ID UU13113807
[2016-05-10 00:02] VITALS: BP 120/62
[2016-05-10 08:11] LABS: POINT-OF-CARE METER ID UU13113807
[2016-05-10 08:13] VITALS: BP 136/61
[2016-05-10 11:58] VITALS: BP 123/56
[2016-05-10 13:12] LABS: POINT-OF-CARE METER ID UU13113807
[2016-05-10 16:00] VITALS: BP 109/55
[2016-05-10 17:18] LABS: POINT-OF-CARE METER ID UU13113807
[2016-05-10 21:32] LABS: POINT-OF-CARE METER ID UU13113807
[2016-05-11 00:04] VITALS: BP 132/63
[2016-05-11 07:42] LABS: POINT-OF-CARE METER ID UU13113807
[2016-05-11 08:00] VITALS: BP 126/61
[2016-05-11 11:57] LABS: POINT-OF-CARE METER ID UU14149396
[2016-05-11 12:00] VITALS: BP 108/57
[2016-05-11 16:00] VITALS: BP 123/57
[2016-05-11 16:57] LABS: POINT-OF-CARE METER ID UU13113807
[2016-05-11 20:30] VITALS: BP 145/78
[2016-05-11 23:11] LABS: POINT-OF-CARE METER ID UU13113807; POINT-OF-CARE USER ID AHSUCEG
[2016-05-12] VITALS: BP 132/63
[2016-05-12 04:00] VITALS: BP 145/78
[2016-05-12 06:53] LABS: HEMATOCRIT 41.2 % (38.0-50.0); MCH 31.3 PG (29.0-34.0); MCHC 29.1 G/DL (30.0-36.0); MCV 107.3 FL (86-99); MEAN PLAT.VOLUME 11.2 uM^3 (9.0-12.4); PLATELET COUNT 103 K/uL (156-360); RBC DIS.WIDTH-CV 13.6 % (11.8-14.6); RBC DIS.WIDTH-SD 53.2 % (39-53); RED BLOOD COUNT 3.84 M/uL (4.00-5.50); WHITE BLOOD COUNT 5.8 K/uL (4.1-10.2)
[2016-05-12 08:31] LABS: POINT-OF-CARE METER ID UU13113807
[2016-05-12 08:55] VITALS: BP 119/57
[2016-05-12 09:51] LABS: ANION GAP ND MEQ/L (2-14); CHLORIDE 88 MEQ/L (99-109); GFR ESTIMATE (CALCULATED) > 59 mL/min/; GLUCOSE 146 mg/dL (70-99); POTASSIUM 4.1 MEQ/L (3.7-5.4); SAMPLE HEMOLYSIS CHECK 0; SAMPLE ICTERIC CHECK 0; SAMPLE LIPEMIA CHECK 0; SODIUM 141 MEQ/L (136-147); UREA NITROGEN (BUN) 18 mg/dL (9-23)
[2016-05-12 09:52] LABS: CARBON DIOXIDE (BICARBONATE) > 40.0 MEQ/L (20-31)
[2016-05-12 12:07] LABS: POINT-OF-CARE METER ID UU14149398
[2016-05-12 15:45] LABS: POINT-OF-CARE METER ID UU14149398
[2016-05-12 16:54] VITALS: BP 127/60
[2016-05-12 22:22] LABS: POINT-OF-CARE METER ID UU14149398
[2016-05-12 23:25] VITALS: BP 133/61
[2016-05-13 08:47] LABS: POINT-OF-CARE METER ID UU14149398
[2016-05-13 09:12] VITALS: BP 133/69
[2016-05-13 12:42] LABS: POINT-OF-CARE METER ID UU14149398
[2016-05-13 12:52] VITALS: BP 138/67
[2016-05-13 16:43] LABS: POINT-OF-CARE METER ID UU14149398
[2016-05-13 17:01] VITALS: BP 128/60
[2016-05-13 20:11] VITALS: BP 137/64
[2016-05-13 21:51] LABS: POINT-OF-CARE METER ID UU14149398
[2016-05-14 00:04] VITALS: BP 133/58
[2016-05-14 03:51] VITALS: BP 148/66
[2016-05-14 08:17] VITALS: BP 140/57
[2016-05-14 09:01] LABS: POINT-OF-CARE METER ID UU14149398
[2016-05-14 12:24] LABS: POINT-OF-CARE METER ID UU14149398
[2016-05-14 15:48] VITALS: BP 135/62
[2016-05-14 16:57] LABS: POINT-OF-CARE METER ID UU14149398
[2016-05-14 21:00] VITALS: BP 125/74
[2016-05-14 21:07] LABS: POINT-OF-CARE METER ID UU14149398
[2016-05-14 23:20] VITALS: BP 131/66
[2016-05-15 09:29] LABS: POINT-OF-CARE METER ID UU14149398; POINT-OF-CARE USER ID 606021404
[2016-05-15 09:58] VITALS: BP 127/59
[2016-05-15 11:48] LABS: POINT-OF-CARE METER ID UU14149398
[2016-05-15] MEDS ORDERED: DOXYCYCLINE HY100 M3 PO (12:44)
[2016-05-15] MEDS ORDERED: SPIRIVA RESPIMAT4 GM IH (12:44)
[2016-05-15] MEDS ORDERED: ELIQUIS5 MG PO (12:45)
[2016-05-15] MEDS ORDERED: CARDIZEM CD,CA240 MG PO (12:46)
[2016-05-15] MEDS ORDERED: DIGOXIN250 MCG PO (12:46)
[2016-05-15] MEDS ORDERED: MUCINEX600 MG PO (12:48)
[2016-05-15] MEDS ORDERED: FUROSEMIDE40 MG PO (12:48)
[2016-05-15] MEDS ORDERED: MODAFINIL100 MG PO (12:48)
[2016-05-15] MEDS ORDERED: THEOPHYLLINE400 MG PO (12:49)
[2016-05-15] MEDS ORDERED: PREDNISONE20 MG PO (12:49)
== END 2016-05-15 15:45 | DRG 189 ==
LOC: EME 10:30 → 4WEST 13:07 → 4EAST 13:07 → EDOF 13:07 → 4SOUTH 13:07 → 4WEST 14:22 → 4EAST 05-01 03:56 → 4SOUTH 05-03 19:29
PROVIDERS: Emergency Medicine; Family Medicine; Internal Medicine Nephrology; Internal Medicine Pulmonary Disease
PROC: 5A09357 Assistance with Respiratory Ventilation, Less than 24 Consecutive Hours, Continuous Positive Airway Pressure (ICD-10-PCS; principal; 2016-04-18)
DX: J96.22 Acute and chronic respiratory failure with hypercapnia (principal); G93.40 Encephalopathy, unspecified; J96.21 Acute and chronic respiratory failure with hypoxia; I48.3 Typical atrial flutter; J44.1 Chronic obstructive pulmonary disease with (acute) exacerbation; Z68.43 Body mass index [BMI] 50.0-59.9, adult; B37.0 Candidal stomatitis; J44.0 Chronic obstructive pulmonary disease with (acute) lower respiratory infection; E11.9 Type 2 diabetes mellitus without complications; E66.01 Morbid (severe) obesity due to excess calories; E87.5 Hyperkalemia; D53.9 Nutritional anemia, unspecified; I48.2 Chronic atrial fibrillation; Z87.891 Personal history of nicotine dependence; G47.33 Obstructive sleep apnea (adult) (pediatric); J20.9 Acute bronchitis, unspecified; Z99.81 Dependence on supplemental oxygen; R60.9 Edema, unspecified; I27.81 Cor pulmonale (chronic)
CPT/HCPCS: 36600; 71010; 71020; 71275; 80048; 80162; 80198; 82550; 82550 91; 82553; 82803; 82948; 83605; 83735; 83880; 84100; 84443; 84484; 85025; 85027; 85379; 87040; 87641; 93005; 93306; 94002; 94003; 94010; 94640; 94640 76; 94644; 94645; 94660; 94667; 94668; 94760; 94799; 97530 GO; 97530 GP; 99202; 99281; 99284; J0692; J1120; J1160; J1650; J1815; J1940; J2920; J2930; J3475; J7050; J7512

== ENCOUNTER 2017-05-19 13:31 | Inpatient (IN) | payer OTHER ==
[~2017-05-19] VITALS: Ht 167.6 cm; Wt 127.6 kg
[~2017-05-19 13:31] MED LIST changes: +ASPIR 8181 M1 PO; +CARDIZEM CD,CA240 MG PO; +CEFTIN500 MG PO; +DIGOXIN250 MCG PO; +DOXYCYCLINE HY100 M3 PO; +ELIQUIS5 MG PO; +MODAFINIL100 MG PO; +MUCINEX600 MG PO; +SPIRIVA RESPIMAT4 GM IH; +THEOPHYLLINE400 MG PO
[2017-05-19 14:04] LABS: BASOPHIL (%) 0.2 % (0-1); EOSINOPHIL (%) 0.1 % (0-5); HEMATOCRIT 38.9 % (38.0-50.0); HEMOGLOBIN 11.7 G/DL (12.5-16.6); IMMATURE GRANULOCYTE (%) 0.3 % (0.0-0.7); LYMPHOCYTE (%) 4.5 % (15-42); LYMPHOCYTE COUNT 0.6 K/uL (1.0-2.8); MCH 32.6 PG (29.0-34.0); MCHC 30.1 G/DL (30.0-36.0); MCV 108.4 FL (86-99); MONOCYTE (%) 4.1 % (3-12); MONOCYTE COUNT 0.5 K/uL (0-0.8); NEUTROPHIL (%) 90.8 % (45-76); NEUTROPHIL COUNT 11.2 K/uL (1.8-6.4); PLATELET COUNT 206 K/uL (156-360); RBC DIS.WIDTH-CV 13.2 % (11.8-14.6); RBC DIS.WIDTH-SD 52.8 % (39-53); RED BLOOD COUNT 3.59 M/uL (4.00-5.50); WHITE BLOOD COUNT 12.3 K/uL (4.1-10.2)
[2017-05-19 14:10] LABS: INTER. NORMALIZED RATIO 1.3
[2017-05-19 14:14] LABS: ALBUMIN 3.3 g/dL (3.2-4.8)
[2017-05-19 14:15] LABS: CHLORIDE 93 mEq/L (99-109); POTASSIUM 4.6 mEq/L (3.7-5.4); SODIUM 140 mEq/L (136-147)
[2017-05-19 14:17] LABS: GLUCOSE 201 mg/dL (70-99); TOTAL PROTEIN 5.8 g/dL (6.4-8.3)
[2017-05-19 14:19] LABS: TOTAL BILIRUBIN 0.3 mg/dL (0.0-1.0)
[2017-05-19 14:20] LABS: ALKALINE PHOSPHATASE 92 IU/L (3-129)
[2017-05-19 14:21] LABS: CARBON DIOXIDE (BICARBONATE) > 40.0 mEq/L (20-31); CREATININE 0.7 mg/dL (0.6-1.3); GFR ESTIMATE (CALCULATED) > 59 mL/min/ (58.99-99999)
[2017-05-19 14:22] LABS: AST (GOT) 12 IU/L (2-34); UREA NITROGEN (BUN) 17 mg/dL (9-23)
[2017-05-19 14:23] LABS: ALT (GPT) 18 IU/L (3-49)
[2017-05-19 14:25] LABS: TROP-I INTERPRETATION NEGATIVE; TROPONIN-I 0.03 ng/mL (0.0-0.30)
[2017-05-19 16:52] LABS: VENOUS PCO2 112 mm Hg (41-51)
[2017-05-19 16:54] LABS: CARBON DIOXIDE (BICARBONATE) > 40.0 MEQ/L (20-31)
[2017-05-19] MEDS ORDERED: ELIQUIS5 MG PO (17:52)
[2017-05-19] MEDS ORDERED: DOXYCYCLINE HY100 M3 PO (17:54)
[2017-05-19] MEDS ORDERED: CYANOCOBALAM1000 MCG PO (17:55)
[2017-05-19] MEDS ORDERED: MATZIM LA240 MG PO (17:59)
[2017-05-19 18:42] VITALS: BP 120/58
[2017-05-19 20:49] LABS: TROP-I INTERPRETATION NEGATIVE; TROPONIN-I 0.03 ng/mL (0.0-0.30)
[2017-05-19 20:51] VITALS: BP 118/56
[2017-05-20 00:34] VITALS: BP 147/71
[2017-05-20 02:04] LABS: TROP-I INTERPRETATION NEGATIVE; TROPONIN-I 0.02 ng/mL (0.0-0.30)
[2017-05-20 03:32] VITALS: BP 155/80
[2017-05-20 06:39] LABS: HEMATOCRIT 39.1 % (38.0-50.0); HEMOGLOBIN 11.6 G/DL (12.5-16.6); MCH 32.5 PG (29.0-34.0); MCHC 29.7 G/DL (30.0-36.0); MCV 109.5 FL (86-99); PLATELET COUNT 215 K/uL (156-360); RBC DIS.WIDTH-CV 13.4 % (11.8-14.6); RBC DIS.WIDTH-SD 54.9 % (39-53); RED BLOOD COUNT 3.57 M/uL (4.00-5.50); WHITE BLOOD COUNT 9.4 K/uL (4.1-10.2)
[2017-05-20 06:54] LABS: ALKALINE PHOSPHATASE 75 IU/L (3-129); ALT (GPT) 15 IU/L (3-49); AST (GOT) 14 IU/L (2-34); CHLORIDE 94 MEQ/L (99-109); CREATININE 0.6 MG/DL (0.6-1.3); GFR ESTIMATE (CALCULATED) > 59 mL/min/ (58.99-99999); POTASSIUM 4.9 MEQ/L (3.7-5.4); SODIUM 145 MEQ/L (136-147); TOTAL BILIRUBIN 0.4 MG/DL (0.0-1.0); TOTAL PROTEIN 5.3 G/DL (6.4-8.3); UREA NITROGEN (BUN) 18 mg/dL (9-23)
[2017-05-20 06:57] LABS: CARBON DIOXIDE (BICARBONATE) > 40.0 MEQ/L (20-31); GLUCOSE 117 mg/dL (70-99)
[2017-05-20 09:22] VITALS: BP 134/78
[2017-05-20 11:06] VITALS: BP 136/66
[2017-05-20 19:10] VITALS: BP 138/60
[2017-05-20 23:11] VITALS: BP 124/60
[2017-05-21 04:30] VITALS: BP 113/63
[2017-05-21 08:30] VITALS: BP 133/64
[2017-05-21 11:17] VITALS: BP 95/50
[2017-05-21 13:18] VITALS: BP 97/57
[2017-05-21 14:59] VITALS: BP 112/56
[2017-05-21 21:00] VITALS: BP 145/78
[2017-05-22] VITALS (7 sets, daily range): BP systolic 107–133; BP diastolic 56–75
[2017-05-23 03:56] VITALS: BP 123/71
[2017-05-23 08:28] VITALS: BP 125/74
[2017-05-23] MEDS ORDERED: CORDARONE200 MG PO (09:49)
[2017-05-23] MEDS ORDERED: DIGOXIN50 MCG/1 M PO (09:49)
[2017-05-23] MEDS ORDERED: CARDIZEM CD,CA240 MG PO (09:50)
[2017-05-23] MEDS ORDERED: PREDNISONE20 MG PO (09:52)
== END 2017-05-23 13:14 | disposition home or self-care (01) | DRG 309 ==
LOC: EME 13:31 → EDOF 17:11 → ENRESERV 17:14 → 4EAST 18:21
PROVIDERS: Emergency Medicine; Hospitalist
DX: I48.2 Chronic atrial fibrillation (principal); J44.9 Chronic obstructive pulmonary disease, unspecified; Z68.42 Body mass index [BMI] 45.0-49.9, adult; E11.9 Type 2 diabetes mellitus without complications; E66.01 Morbid (severe) obesity due to excess calories; J96.10 Chronic respiratory failure, unspecified whether with hypoxia or hypercapnia; G47.33 Obstructive sleep apnea (adult) (pediatric); D53.9 Nutritional anemia, unspecified; Z99.81 Dependence on supplemental oxygen; Z91.19 Patient's noncompliance with other medical treatment and regimen; Z87.891 Personal history of nicotine dependence; Z79.52 Long term (current) use of systemic steroids; Z79.01 Long term (current) use of anticoagulants
CPT/HCPCS: 71045; 80053; 82803; 83880; 84484; 85025; 85027; 85610; 87641; 93005; 94640; 94640 76; 94799; 99202; 99281; 99285; G0378; J1160; J7040; J7050; J7512

== ENCOUNTER 2017-07-01 11:20 | Inpatient (IN) | payer OTHER ==
[~2017-07-01] VITALS: Ht 170.2 cm; Wt 134.7 kg
[2017-07-01] VITALS (10 sets, daily range): BP systolic 103–145; BP diastolic 58–95
[~2017-07-01 11:20] MED LIST changes: +CORDARONE200 MG PO; +DIGOXIN50 MCG/1 M PO; +MATZIM LA240 MG PO
[2017-07-01 12:04] LABS: BASE EXCESS 25.9 mEq/L (-3 to +3); CARBOXY HGB 2.5 % (0-5); DEVICE CANNULA; METHEMOGLOBIN 0.7 % (0-1.5); O2 FLOW 3.5 L/MIN; PCO2 120 mm Hg (35-45); PO2 65 mm Hg (80-100); SITE LR
[2017-07-01 12:05] LABS: COMMENTS - BLOOD GASES NAC+; TOTAL RESP RATE 26 resp/min
[2017-07-01 12:11] LABS: BASOPHIL (%) 0.2 % (0-1); EOSINOPHIL (%) 0.2 % (0-5); HEMATOCRIT 42.9 % (38.0-50.0); HEMOGLOBIN 12.7 G/DL (12.5-16.6); IMMATURE GRANULOCYTE (%) 0.6 % (0.0-0.7); LYMPHOCYTE (%) 4.8 % (15-42); LYMPHOCYTE COUNT 0.6 K/uL (1.0-2.8); MCHC 29.6 G/DL (30.0-36.0); MCV 111.4 FL (86-99); MONOCYTE (%) 6.1 % (3-12); MONOCYTE COUNT 0.8 K/uL (0-0.8); NEUTROPHIL (%) 88.1 % (45-76); NEUTROPHIL COUNT 11.1 K/uL (1.8-6.4); PLATELET COUNT 184 K/uL (156-360); RBC DIS.WIDTH-CV 13.2 % (11.8-14.6); RBC DIS.WIDTH-SD 54.4 % (39-53); RED BLOOD COUNT 3.85 M/uL (4.00-5.50); WHITE BLOOD COUNT 12.5 K/uL (4.1-10.2)
[2017-07-01 12:13] LABS: CHLORIDE 85 mEq/L (99-109); INTER. NORMALIZED RATIO 1.5; POTASSIUM 4.8 mEq/L (3.7-5.4); SODIUM 141 mEq/L (136-147)
[2017-07-01 12:14] LABS: MAGNESIUM 2.4 mg/dL (1.3-2.7)
[2017-07-01 12:15] LABS: GLUCOSE 194 mg/dL (70-99); PTT 36.3 SEC (25-37)
[2017-07-01 12:18] LABS: CARBON DIOXIDE (BICARBONATE) > 40.0 mEq/L (20-31)
[2017-07-01 12:19] LABS: CREATININE 0.8 mg/dL (0.6-1.3); GFR ESTIMATE (CALCULATED) > 59 mL/min/ (58.99-99999)
[2017-07-01 12:20] LABS: UREA NITROGEN (BUN) 18 mg/dL (9-23)
[2017-07-01 12:26] LABS: TROP-I INTERPRETATION NEGATIVE; TROPONIN-I < 0.01 ng/mL (0.0-0.30)
[2017-07-01 12:58] LABS: ANISOCYTOSIS 1+; MACROCYTES 3+
[2017-07-01 15:38] LABS: BASE EXCESS 25.8 mEq/L (-3 to +3); BICARBONATE 58.2 mEq/L (22-26); CARBOXY HGB 2.3 % (0-5); PCO2 113 mm Hg (35-45); PO2 56 mm Hg (80-100); pH 7.32 (7.35-7.45)
[2017-07-01 15:39] LABS: COMMENTS - BLOOD GASES C+A+; DEVICE NIV; FI02 40 %; MODE SPONT; PEEP 5 CM/H20; PRES. SUPPORT 12 CM/H2O; SITE RR; TOTAL RESP RATE 24 resp/min
[2017-07-01 18:31] LABS: BASE EXCESS 28.2 mEq/L (-3 to +3); BICARBONATE 60.2 mEq/L (22-26); CARBOXY HGB 2.7 % (0-5); METHEMOGLOBIN 1.4 % (0-1.5); PCO2 109 mm Hg (35-45); pH 7.35 (7.35-7.45)
[2017-07-01 18:32] LABS: COMMENTS - BLOOD GASES A+C+; DEVICE MASK VENT; FI02 40 %; MODE SPONT; PO2 72 mm Hg (80-100); SITE LR
[2017-07-01 18:33] LABS: PEEP 5 CM/H20; PRES. SUPPORT 12 CM/H2O
[2017-07-01 22:25] LABS: BASE EXCESS 27.9 mEq/L (-3 to +3); BICARBONATE 58.3 mEq/L (22-26); CARBOXY HGB 2.3 % (0-5); METHEMOGLOBIN 1.4 % (0-1.5); PCO2 92 mm Hg (35-45); PO2 82 mm Hg (80-100); pH 7.41 (7.35-7.45)
[2017-07-01 22:26] LABS: DEVICE VENT; FI02 40 %; MODE SPON/PS; PEEP 5 CM/H20; PRES. SUPPORT 18 CM/H2O; SITE LR; TOTAL RESP RATE 18 resp/min
[2017-07-02] VITALS (23 sets, daily range): BP systolic 77–132; BP diastolic 44–79
[2017-07-02 01:12] LABS: BASE EXCESS 21.6 mEq/L (-3 to +3); CARBOXY HGB 2.1 % (0-5); METHEMOGLOBIN 1.5 % (0-1.5); PO2 88 mm Hg (80-100); pH 7.38 (7.35-7.45)
[2017-07-02 01:13] LABS: BICARBONATE 51.5 mEq/L (22-26); COMMENTS - BLOOD GASES C+; DEVICE VENT; FI02 50 %; MECHANICAL RATE 16 resp/min; MODE ACVC; PCO2 87 mm Hg (35-45); PEEP 5 CM/H20; SITE LR; TIDAL VOLUME 500 ML; TOTAL RESP RATE 16 resp/min
[2017-07-02 06:44] LABS: CHLORIDE 89 MEQ/L (99-109); CREATININE 0.7 MG/DL (0.6-1.3); GFR ESTIMATE (CALCULATED) > 59 mL/min/ (58.99-99999); GLUCOSE 196 mg/dL (70-99); MCH 32.8 PG (29.0-34.0); MCHC 31.4 G/DL (30.0-36.0); RBC DIS.WIDTH-SD 49.8 % (39-53); RED BLOOD COUNT 3.35 M/uL (4.00-5.50); SODIUM 139 MEQ/L (136-147); UREA NITROGEN (BUN) 20 mg/dL (9-23); WHITE BLOOD COUNT 7.9 K/uL (4.1-10.2)
[2017-07-02 07:20] LABS: MCV 104.5 FL (86-99); PLATELET COUNT 119 K/uL (156-360)
[2017-07-02 09:29] LABS: BASE EXCESS 26.8 mEq/L (-3 to +3); BICARBONATE 52.8 mEq/L (22-26); CARBOXY HGB 1.5 % (0-5); METHEMOGLOBIN 1.2 % (0-1.5); PCO2 59 mm Hg (35-45); PO2 66 mm Hg (80-100)
[2017-07-02 09:30] LABS: COMMENTS - BLOOD GASES A+C+; DEVICE VENT; FI02 30 %; MECHANICAL RATE 16 resp/min; MODE AC; PEEP 5 CM/H20; SITE LR; TIDAL VOLUME 500 ML; TOTAL RESP RATE 16 resp/min; pH 7.56 (7.35-7.45)
[2017-07-02 19:26] LABS: BASE EXCESS 25.8 mEq/L (-3 to +3); BICARBONATE 53.3 mEq/L (22-26); CARBOXY HGB 1.7 % (0-5); METHEMOGLOBIN 1.4 % (0-1.5); PO2 67 mm Hg (80-100); pH 7.49 (7.35-7.45)
[2017-07-02 19:27] LABS: COMMENTS - BLOOD GASES C+A+; DEVICE VENTILATOR; FI02 35 %; MODE SPONT; PCO2 70 mm Hg (35-45); PEEP 5 CM/H20; PRES. SUPPORT 10 CM/H2O; SITE RR; TOTAL RESP RATE 26 resp/min
[2017-07-03] VITALS (20 sets, daily range): BP systolic 100–135; BP diastolic 46–93
[2017-07-03 06:47] LABS: HEMATOCRIT 36.6 % (38.0-50.0); HEMOGLOBIN 11.5 G/DL (12.5-16.6); MCHC 31.4 G/DL (30.0-36.0); MCV 101.9 FL (86-99); RBC DIS.WIDTH-CV 13.7 % (11.8-14.6); RBC DIS.WIDTH-SD 52.1 % (39-53); RED BLOOD COUNT 3.59 M/uL (4.00-5.50); WHITE BLOOD COUNT 7.2 K/uL (4.1-10.2)
[2017-07-03 06:54] LABS: PLATELET COUNT 172 K/uL (156-360)
[2017-07-03 10:13] LABS: BASE EXCESS 21.6 mEq/L (-3 to +3); BICARBONATE 48.8 mEq/L (22-26); CARBOXY HGB 2.3 % (0-5); DEVICE VENT; FI02 35 %; METHEMOGLOBIN 1.2 % (0-1.5); MODE SPONT; PCO2 64 mm Hg (35-45); PO2 65 mm Hg (80-100); SITE LR; TOTAL RESP RATE 20 resp/min; pH 7.49 (7.35-7.45)
[2017-07-03 10:14] LABS: CONTINUOUS POS AIRWAY PRESSURE 5 cm H2O; PRES. SUPPORT 12 CM/H2O; TIDAL VOLUME 442 ML
[2017-07-03 11:02] LABS: CHLORIDE 87 MEQ/L (99-109); CREATININE 0.8 MG/DL (0.6-1.3); GFR ESTIMATE (CALCULATED) > 59 mL/min/ (58.99-99999); GLUCOSE 216 mg/dL (70-99); MAGNESIUM 2.3 mg/dl (1.3-2.7); PHOSPHORUS 2.4 mg/dL (2.5-4.9); POTASSIUM 3.3 MEQ/L (3.7-5.4); SODIUM 138 MEQ/L (136-147); UREA NITROGEN (BUN) 22 mg/dL (9-23)
[2017-07-04] VITALS (17 sets, daily range): BP systolic 102–135; BP diastolic 51–66
[2017-07-04 06:44] LABS: HEMATOCRIT 41.1 % (38.0-50.0); HEMOGLOBIN 12.4 G/DL (12.5-16.6); MCH 31.7 PG (29.0-34.0); MCHC 30.2 G/DL (30.0-36.0); MCV 105.1 FL (86-99); PLATELET COUNT 191 K/uL (156-360); RBC DIS.WIDTH-CV 13.9 % (11.8-14.6); RBC DIS.WIDTH-SD 54.2 % (39-53); RED BLOOD COUNT 3.91 M/uL (4.00-5.50); WHITE BLOOD COUNT 8.7 K/uL (4.1-10.2)
[2017-07-04 07:16] LABS: CARBON DIOXIDE (BICARBONATE) > 40.0 MEQ/L (20-31); CHLORIDE 93 MEQ/L (99-109); CREATININE 0.6 MG/DL (0.6-1.3); GFR ESTIMATE (CALCULATED) > 59 mL/min/ (58.99-99999); GLUCOSE 201 mg/dL (70-99); MAGNESIUM 2.5 mg/dl (1.3-2.7); PHOSPHORUS 4.1 mg/dL (2.5-4.9); POTASSIUM 3.9 MEQ/L (3.7-5.4); SODIUM 146 MEQ/L (136-147); UREA NITROGEN (BUN) 22 mg/dL (9-23)
[2017-07-05 04:00] VITALS: BP 111/59
[2017-07-05 07:36] VITALS: BP 110/56
[2017-07-05 12:08] VITALS: BP 136/61
[2017-07-05 16:22] VITALS: BP 111/58
[2017-07-05 19:00] VITALS: BP 123/58
[2017-07-05 23:00] VITALS: BP 137/69
[2017-07-06 04:30] VITALS: BP 127/68
[2017-07-06 07:29] VITALS: BP 108/59
[2017-07-06] MEDS ORDERED: CEFTIN500 MG PO (12:12)
[2017-07-06 12:25] VITALS: BP 110/54
== END 2017-07-06 14:35 | disposition home or self-care (01) | DRG 208 ==
LOC: EME 11:20 → EDOF 14:30 → 4EAST 14:30 → 4WEST 14:30 → ENRESERV 14:31 → 4WEST 17:35 → ENRESERV 07-04 19:49 → 4EAST 07-04 22:16
PROVIDERS: Emergency Medicine; Hospitalist; Internal Medicine; Internal Medicine Critical Care Medicine; Specialist
DX: J96.21 Acute and chronic respiratory failure with hypoxia (principal); J18.9 Pneumonia, unspecified organism; J44.0 Chronic obstructive pulmonary disease with (acute) lower respiratory infection; J96.22 Acute and chronic respiratory failure with hypercapnia; E66.01 Morbid (severe) obesity due to excess calories; Z68.42 Body mass index [BMI] 45.0-49.9, adult; Z99.81 Dependence on supplemental oxygen; J98.11 Atelectasis; E11.9 Type 2 diabetes mellitus without complications; G47.33 Obstructive sleep apnea (adult) (pediatric); I48.2 Chronic atrial fibrillation; E87.6 Hypokalemia; I51.7 Cardiomegaly; I10 Essential (primary) hypertension
CPT/HCPCS: 36600; 71045; 80048; 82803; 82948; 83605; 83735; 83880; 84100; 84484; 85025; 85027; 85610; 85730; 87040; 87070; 87205; 87641; 93005; 94002; 94003; 94640; 94640 76; 94760; 94799; 97530 GP; 99202; 99281; 99285; J0456; J0692; J0696; J1815; J1956; J2704; J2930; J7040; J7644; S0028

== ENCOUNTER 2017-12-10 11:29 | Inpatient (IN) | payer OTHER ==
[~2017-12-10] VITALS: Ht 167.6 cm; Wt 135.5 kg
[2017-12-10] VITALS (8 sets, daily range): BP systolic 105–121; BP diastolic 50–66
[2017-12-10 11:59] LABS: DEVICE NC; O2 FLOW 4 L/MIN; SITE LR; TOTAL RESP RATE 22 resp/min
[2017-12-10 12:00] LABS: BASE EXCESS 20.5 mEq/L (-3 to +3); BICARBONATE 53.1 mEq/L (22-26); CARBOXY HGB 2.4 % (0-5); METHEMOGLOBIN 0.9 % (0-1.5); PCO2 121 mm Hg (35-45); PO2 73 mm Hg (80-100); pH 7.25 (7.35-7.45)
[2017-12-10 12:01] LABS: COMMENTS - BLOOD GASES A+C+
[2017-12-10 12:24] LABS: BASOPHIL (%) 0.2 % (0-1); EOSINOPHIL (%) 0 % (0-5); IMMATURE GRANULOCYTE (%) 0.5 % (0.0-0.7); INTER. NORMALIZED RATIO 1.3; LYMPHOCYTE (%) 2.9 % (15-42); LYMPHOCYTE COUNT 0.4 K/uL (1.0-2.8); MONOCYTE COUNT 0.5 K/uL (0-0.8); NEUTROPHIL (%) 92.4 % (45-76); NEUTROPHIL COUNT 11.3 K/uL (1.8-6.4); PLATELET COUNT 203 K/uL (156-360)
[2017-12-10 12:26] LABS: PTT 35.3 SEC (25-37)
[2017-12-10 12:28] LABS: HEMATOCRIT 40.3 % (38.0-50.0); HEMOGLOBIN 11.7 G/DL (12.5-16.6); MCH 32.3 PG (29.0-34.0); MCV 111.3 FL (86-99); RBC DIS.WIDTH-CV 13.2 % (11.8-14.6); RBC DIS.WIDTH-SD 54.6 % (39-53); RED BLOOD COUNT 3.62 M/uL (4.00-5.50); WHITE BLOOD COUNT 12.2 K/uL (4.1-10.2)
[2017-12-10 12:42] LABS: CHLORIDE 90 mEq/L (99-109); POTASSIUM 4.6 mEq/L (3.7-5.4); SODIUM 144 mEq/L (136-147)
[2017-12-10 12:43] LABS: MAGNESIUM 2.3 mg/dL (1.3-2.7)
[2017-12-10 12:44] LABS: GLUCOSE 229 mg/dL (70-99)
[2017-12-10 12:46] LABS: CARBON DIOXIDE (BICARBONATE) > 40.0 mEq/L (20-31)
[2017-12-10 12:48] LABS: CREATININE 0.8 mg/dL (0.6-1.3); GFR ESTIMATE (CALCULATED) > 59 mL/min/ (58.99-99999)
[2017-12-10 12:49] LABS: TROP-I INTERPRETATION NEGATIVE; TROPONIN-I < 0.01 ng/mL (0.0-0.30); UREA NITROGEN (BUN) 23 mg/dL (9-23)
[2017-12-10 13:11] LABS: ANISOCYTOSIS 2+; BASOPH.STIPPLING 1+; HYPOCHROMASIA 1+; MACROCYTES 1+; MICROCYTOSIS 1+; PLAT.SUFFICIENCY ADEQUATE; POIKILOCYTOSIS 1+; POLYCHROMASIA 1+
[2017-12-10 14:17] LABS: CARBOXY HGB 2.6 % (0-5); COMMENTS - BLOOD GASES A+C+; DEVICE MASK; METHEMOGLOBIN 1.3 % (0-1.5); O2 FLOW 8 L/MIN; O2 SATURATION (CALCULATED) 95.2 % (95-99); PCO2 124 mm Hg (35-45); PO2 134 mm Hg (80-100); SITE RR; pH 7.18 (7.35-7.45)
[2017-12-10 15:55] LABS: COMMENTS - BLOOD GASES A+C+; DEVICE VENT; FI02 60 %; MECHANICAL RATE 20 resp/min; MODE AC; PCO2 79 mm Hg (35-45); PEEP 5 CM/H20; PO2 111 mm Hg (80-100); SITE RIGHT RAD; TIDAL VOLUME 500 ML; TOTAL RESP RATE 20 resp/min; pH 7.42 (7.35-7.45)
[2017-12-10 15:56] LABS: BASE EXCESS 22.7 mEq/L (-3 to +3); BICARBONATE 51.2 mEq/L (22-26); CARBOXY HGB 1.9 % (0-5); METHEMOGLOBIN 1.2 % (0-1.5)
[2017-12-11] VITALS (20 sets, daily range): BP systolic 102–145; BP diastolic 61–83
[2017-12-11 11:23] LABS: BASE EXCESS 20.5 mEq/L (-3 to +3); BICARBONATE 47.3 mEq/L (22-26); CARBOXY HGB 1.4 % (0-5); COMMENTS - BLOOD GASES A+C+; DEVICE VENT; FI02 40 %; METHEMOGLOBIN 0.9 % (0-1.5); PCO2 65 mm Hg (35-45); PO2 70 mm Hg (80-100); SITE RR; pH 7.47 (7.35-7.45)
[2017-12-11 11:24] LABS: MODE TC; PEEP 5 CM/H20; TOTAL RESP RATE 25 resp/min
[2017-12-11] MEDS ORDERED: DOXYCYCLINE HY100 MG PO (15:27)
[2017-12-11] MEDS ORDERED: TRULICITY0.75 MG/0. SC (15:28)
[2017-12-12] VITALS (8 sets, daily range): BP systolic 114–131; BP diastolic 57–84
[2017-12-13] VITALS: BP 132/67
[2017-12-13 04:00] VITALS: BP 117/62
[2017-12-13] MEDS ORDERED: PREDNISONE10 MG PO (07:32)
[2017-12-13 07:50] VITALS: BP 133/81
== END 2017-12-13 10:36 | disposition home or self-care (01) | DRG 208 ==
LOC: EME 11:29 → EDOF 15:19 → 4WEST 15:19 → ENRESERV 15:20 → 4WEST 16:17 → CANRESERV 12-12 09:16 → ENRESERV 12-12 09:16 → 5SOUTH 12-12 10:53 → ENPENDDIS 12-13 08:46 → 5SOUTH 12-13 10:36
PROVIDERS: Emergency Medicine; Family Medicine; Internal Medicine Critical Care Medicine
PROC: 0BH17EZ Insertion of Endotracheal Airway into Trachea, Via Natural or Artificial Opening (ICD-10-PCS; principal; 2017-12-10)
PROC: 5A1935Z Respiratory Ventilation, Less than 24 Consecutive Hours (ICD-10-PCS; principal; 2017-12-10)
PROC: 5A09357 Assistance with Respiratory Ventilation, Less than 24 Consecutive Hours, Continuous Positive Airway Pressure (ICD-10-PCS; 2017-12-11)
DX: J96.21 Acute and chronic respiratory failure with hypoxia (principal); J44.1 Chronic obstructive pulmonary disease with (acute) exacerbation; E87.2 Acidosis; J96.22 Acute and chronic respiratory failure with hypercapnia; I48.2 Chronic atrial fibrillation; G47.33 Obstructive sleep apnea (adult) (pediatric); E11.9 Type 2 diabetes mellitus without complications; E66.01 Morbid (severe) obesity due to excess calories; Z68.42 Body mass index [BMI] 45.0-49.9, adult; Z79.01 Long term (current) use of anticoagulants; Z79.52 Long term (current) use of systemic steroids; Z99.81 Dependence on supplemental oxygen
CPT/HCPCS: 36600; 71045; 71275; 80048; 82948; 83605; 83735; 83880; 84484; 85025; 85610; 85730; 87040; 87070; 87205; 87641; 93005; 94002; 94003; 94640; 94644; 94760; 94799; 97530 GO; 99281; 99285; J0692; J1815; J1956; J2930; J3010; S0028

== ENCOUNTER 2017-12-14 10:44 | Inpatient (IN) | payer OTHER ==
[2017-12-14] VITALS (13 sets, daily range): BP systolic 92–150; BP diastolic 47–91
[~2017-12-14] VITALS: Ht 167.6 cm; Wt 129.3 kg
[~2017-12-14 10:44] MED LIST changes: +DOXYCYCLINE HY100 MG PO; +PREDNISONE10 MG PO; +TRULICITY0.75 MG/0. SC
[2017-12-14 11:45] LABS: BASOPHIL (%) 0.2 % (0-1); EOSINOPHIL (%) 0 % (0-5); HEMATOCRIT 43.9 % (38.0-50.0); HEMOGLOBIN 12.6 G/DL (12.5-16.6); IMMATURE GRANULOCYTE (%) 1.5 % (0.0-0.7); LYMPHOCYTE (%) 2.3 % (15-42); LYMPHOCYTE COUNT 0.3 K/uL (1.0-2.8); MCH 31.7 PG (29.0-34.0); MCHC 28.7 G/DL (30.0-36.0); MCV 110.3 FL (86-99); MONOCYTE (%) 4.5 % (3-12); MONOCYTE COUNT 0.7 K/uL (0-0.8); NEUTROPHIL (%) 91.5 % (45-76); NEUTROPHIL COUNT 13.4 K/uL (1.8-6.4); PLATELET COUNT 225 K/uL (156-360); RBC DIS.WIDTH-CV 12.9 % (11.8-14.6); RBC DIS.WIDTH-SD 52.8 % (39-53); RED BLOOD COUNT 3.98 M/uL (4.00-5.50); WHITE BLOOD COUNT 14.6 K/uL (4.1-10.2)
[2017-12-14 11:54] LABS: CHLORIDE 90 mEq/L (99-109); POTASSIUM 4.9 mEq/L (3.7-5.4); SODIUM 140 mEq/L (136-147)
[2017-12-14 11:56] LABS: GLUCOSE 301 mg/dL (70-99); INTER. NORMALIZED RATIO 1.4
[2017-12-14 11:58] LABS: PTT 31.1 SEC (25-37)
[2017-12-14 11:58] LABS: DEVICE NC; O2 FLOW 5 L/MIN; O2 SATURATION (CALCULATED) 86.7 % (95-99); PCO2 124 mm Hg (35-45); PO2 58 mm Hg (80-100); SITE RR; TOTAL RESP RATE 24 resp/min; pH 7.16 (7.35-7.45)
[2017-12-14 11:59] LABS: CARBOXY HGB 2.6 % (0-5); METHEMOGLOBIN 0.9 % (0-1.5)
[2017-12-14 12:00] LABS: CREATININE 0.9 mg/dL (0.6-1.3); GFR ESTIMATE (CALCULATED) > 59 mL/min/ (58.99-99999)
[2017-12-14 12:01] LABS: UREA NITROGEN (BUN) 30 mg/dL (9-23)
[2017-12-14 12:03] LABS: CARBON DIOXIDE (BICARBONATE) > 40.0 mEq/L (20-31)
[2017-12-14 12:06] LABS: TROP-I INTERPRETATION NEGATIVE; TROPONIN-I < 0.01 ng/mL (0.0-0.30)
[2017-12-14 13:23] LABS: DEVICE MASK VENT; FI02 60 %; MECHANICAL RATE 20 resp/min; MODE SIMV; PCO2 124 mm Hg (35-45); PEEP 5 CM/H20; PRES. SUPPORT 15 CM/H2O; SITE RR; TOTAL RESP RATE 25 resp/min; pH 7.18 (7.35-7.45)
[2017-12-14 13:24] LABS: CARBOXY HGB 2.3 % (0-5); METHEMOGLOBIN 1.1 % (0-1.5); O2 SATURATION (CALCULATED) 95.6 % (95-99); PO2 137 mm Hg (80-100)
[2017-12-14 18:25] LABS: DEVICE NIV; FI02 40 %; MECHANICAL RATE 20 resp/min; MODE SIMV; PRES. SUPPORT 15 CM/H2O; SITE RR; TIDAL VOLUME 500 ML; TOTAL RESP RATE 20 resp/min
[2017-12-14 18:26] LABS: COMMENTS - BLOOD GASES A+C+; PEEP 5 CM/H20
[2017-12-14 18:27] LABS: METHEMOGLOBIN 0.7 % (0-1.5); O2 SATURATION (CALCULATED) 92.9 % (95-99); PCO2 122 mm Hg (35-45); PO2 72 mm Hg (80-100); pH 7.24 (7.35-7.45)
[2017-12-14 20:04] LABS: APPEARANCE CLEAR ((CLEAR)); BILIRUBIN NEGATIVE; BLOOD SMALL; COLOR YELLOW ((YELLOW)); GLUCOSE (STRIP) 50; KETONES NEGATIVE; LEUKOCYTES NEGATIVE; NITRITE NEGATIVE; PROTEIN (STRIP) NEGATIVE; SPECIFIC GRAVITY 1.015 (1.000-1.030); UROBILINOGEN 0.2 MG/DL (0.2-1.0)
[2017-12-14 20:12] LABS: BACTERIA RARE /HPF; EPITHELIAL CELLS RARE /HPF; MUCUS NONE SEEN /LPF; RED BLOOD CELLS 0-5 /HPF (0-5); UCUL ADDED? NO; WHITE BLOOD CELLS 0-5 /HPF (0-5)
[2017-12-14 20:53] LABS: COMMENTS - BLOOD GASES C+; DEVICE VENT; FI02 45 %; INSPIRATION TIME 1.1 seconds; MECHANICAL RATE 20 resp/min; MODE ACVC; PCO2 70 mm Hg (35-45); PEEP 5 CM/H20; PO2 91 mm Hg (80-100); SITE RR; TIDAL VOLUME 500 ML; TOTAL RESP RATE 20 resp/min; pH 7.48 (7.35-7.45)
[2017-12-14 20:54] LABS: BASE EXCESS 24.5 mEq/L (-3 to +3); BICARBONATE 52.1 mEq/L (22-26); CARBOXY HGB 1.8 % (0-5); METHEMOGLOBIN 0.6 % (0-1.5); O2 SATURATION (CALCULATED) 98.4 % (95-99)
[2017-12-14 21:24] LABS: TRIGLYCERIDES 117 MG/DL (Normal: <150)
[2017-12-15] VITALS (19 sets, daily range): BP systolic 100–135; BP diastolic 47–71
[2017-12-15 01:10] LABS: INTER. NORMALIZED RATIO 1.2
[2017-12-15 01:13] LABS: PTT 28.1 SEC (25-37)
[2017-12-15 05:01] LABS: COMMENTS - BLOOD GASES C+NA; DEVICE VENT; FI02 35 %; MECHANICAL RATE 16 resp/min; MODE AC; SITE RR; TIDAL VOLUME 500 ML; TOTAL RESP RATE 16 resp/min
[2017-12-15 05:02] LABS: BASE EXCESS 27 mEq/L (-3 to +3); BICARBONATE 52.8 mEq/L (22-26); CARBOXY HGB 1.4 % (0-5); METHEMOGLOBIN 0.9 % (0-1.5); PCO2 59 mm Hg (35-45); PEEP 5 CM/H20; PO2 77 mm Hg (80-100); pH 7.56 (7.35-7.45)
[2017-12-15 05:48] LABS: COMMENTS - BLOOD GASES A+C+; DEVICE VENT; FI02 35 %; INSPIRATION TIME 0.9 seconds; MECHANICAL RATE 10 resp/min; MODE ACVC+; SITE RR
[2017-12-15 05:49] LABS: BASE EXCESS 24.8 mEq/L (-3 to +3); BICARBONATE 52.1 mEq/L (22-26); CARBOXY HGB 1.6 % (0-5); METHEMOGLOBIN 0.4 % (0-1.5); O2 SATURATION (CALCULATED) 97.3 % (95-99); PCO2 70 mm Hg (35-45); PEEP 5 CM/H20; PO2 72 mm Hg (80-100); TIDAL VOLUME 500 ML; TOTAL RESP RATE 10 resp/min; pH 7.48 (7.35-7.45)
[2017-12-15 06:35] LABS: COMMENTS - BLOOD GASES C+; DEVICE VENT; FI02 35 %; MODE SPONT; SITE RR; TOTAL RESP RATE 15 resp/min
[2017-12-15 06:36] LABS: BASE EXCESS 23.6 mEq/L (-3 to +3); BICARBONATE 51.2 mEq/L (22-26); CARBOXY HGB 1.3 % (0-5); METHEMOGLOBIN 0.9 % (0-1.5); PCO2 72 mm Hg (35-45); PEEP 5 CM/H20; PO2 71 mm Hg (80-100); PRES. SUPPORT 15 CM/H2O; pH 7.46 (7.35-7.45)
[2017-12-15 09:33] LABS: BASOPHIL (%) 0.1 % (0-1); EOSINOPHIL (%) 0 % (0-5); HEMATOCRIT 36.6 % (38.0-50.0); HEMOGLOBIN 10.8 G/DL (12.5-16.6); IMMATURE GRANULOCYTE (%) 0.5 % (0.0-0.7); LYMPHOCYTE (%) 2.3 % (15-42); LYMPHOCYTE COUNT 0.2 K/uL (1.0-2.8); MCH 31.3 PG (29.0-34.0); MCHC 29.5 G/DL (30.0-36.0); MCV 106.1 FL (86-99); MONOCYTE (%) 5.5 % (3-12); MONOCYTE COUNT 0.5 K/uL (0-0.8); NEUTROPHIL (%) 91.6 % (45-76); NEUTROPHIL COUNT 8.6 K/uL (1.8-6.4); PLATELET COUNT 191 K/uL (156-360); RBC DIS.WIDTH-SD 50.7 % (39-53); RED BLOOD COUNT 3.45 M/uL (4.00-5.50); WHITE BLOOD COUNT 9.4 K/uL (4.1-10.2)
[2017-12-15 10:35] LABS: CHLORIDE 92 MEQ/L (99-109); CREATININE 0.6 MG/DL (0.6-1.3); GFR ESTIMATE (CALCULATED) > 59 mL/min/ (58.99-99999); MAGNESIUM 2.3 mg/dl (1.3-2.7); PHOSPHORUS 1.8 mg/dL (2.5-4.9); POTASSIUM 4.1 MEQ/L (3.7-5.4); SODIUM 142 MEQ/L (136-147); UREA NITROGEN (BUN) 28 mg/dL (9-23)
[2017-12-15 10:36] LABS: CARBON DIOXIDE (BICARBONATE) > 40.0 MEQ/L (20-31); GLUCOSE 150 mg/dL (70-99)
[2017-12-16] VITALS (15 sets, daily range): BP systolic 103–146; BP diastolic 51–73
[2017-12-16 10:32] LABS: COMMENTS - BLOOD GASES A+C+; DEVICE 980; FI02 35 %; MODE SPONT; PCO2 65 mm Hg (35-45); PEEP 5 CM/H20; PO2 61 mm Hg (80-100); PRES. SUPPORT 8 CM/H2O; SITE LR; TOTAL RESP RATE 21 resp/min; pH 7.43 (7.35-7.45)
[2017-12-16 10:33] LABS: BASE EXCESS 15.8 mEq/L (-3 to +3); BICARBONATE 43.1 mEq/L (22-26); METHEMOGLOBIN 0.6 % (0-1.5)
[2017-12-16 10:42] LABS: BASOPHIL (%) 0.1 % (0-1); EOSINOPHIL (%) 0 % (0-5); HEMATOCRIT 38.1 % (38.0-50.0); HEMOGLOBIN 11.8 G/DL (12.5-16.6); IMMATURE GRANULOCYTE (%) 0.5 % (0.0-0.7); LYMPHOCYTE COUNT 0.2 K/uL (1.0-2.8); MCH 31.4 PG (29.0-34.0); MCV 101.3 FL (86-99); MONOCYTE (%) 3.6 % (3-12); MONOCYTE COUNT 0.4 K/uL (0-0.8); NEUTROPHIL (%) 93.8 % (45-76); PLATELET COUNT 196 K/uL (156-360); RBC DIS.WIDTH-CV 13.1 % (11.8-14.6); RED BLOOD COUNT 3.76 M/uL (4.00-5.50); WHITE BLOOD COUNT 9.6 K/uL (4.1-10.2)
[2017-12-16 11:12] LABS: ALBUMIN 3.1 G/DL (3.2-4.8); ALKALINE PHOSPHATASE 63 IU/L (3-129); ALT (GPT) 49 IU/L (3-49); AST (GOT) 21 IU/L (2-34); CHLORIDE 91 MEQ/L (99-109); CREATININE 0.6 MG/DL (0.6-1.3); GFR ESTIMATE (CALCULATED) > 59 mL/min/ (58.99-99999); GLUCOSE 178 mg/dL (70-99); MAGNESIUM 2.3 mg/dl (1.3-2.7); POTASSIUM 3.8 MEQ/L (3.7-5.4); SODIUM 139 MEQ/L (136-147); TOTAL BILIRUBIN 0.5 MG/DL (0.0-1.0); TOTAL PROTEIN 5.2 G/DL (6.4-8.3); UREA NITROGEN (BUN) 22 mg/dL (9-23)
[2017-12-16 11:13] LABS: PHOSPHORUS 2.7 mg/dL (2.5-4.9)
[2017-12-17] VITALS (10 sets, daily range): BP systolic 109–148; BP diastolic 53–92
[2017-12-17 00:45] LABS: POTASSIUM 4.1 mEq/L (3.7-5.4)
[2017-12-17 00:46] LABS: MAGNESIUM 2.5 mg/dL (1.3-2.7)
[2017-12-17 06:01] LABS: HEMATOCRIT 38.7 % (38.0-50.0); HEMOGLOBIN 11.8 G/DL (12.5-16.6); MCH 31.3 PG (29.0-34.0); MCHC 30.5 G/DL (30.0-36.0); MCV 102.7 FL (86-99); PLATELET COUNT 193 K/uL (156-360); RBC DIS.WIDTH-CV 13.2 % (11.8-14.6); RBC DIS.WIDTH-SD 50.2 % (39-53); RED BLOOD COUNT 3.77 M/uL (4.00-5.50); WHITE BLOOD COUNT 9.5 K/uL (4.1-10.2)
[2017-12-17 11:35] LABS: CHLORIDE 94 mEq/L (99-109); SODIUM 142 mEq/L (136-147)
[2017-12-17 11:37] LABS: GLUCOSE 223 mg/dL (70-99)
[2017-12-17 11:40] LABS: PHOSPHORUS 2.8 mg/dL (2.5-4.9)
[2017-12-17 11:41] LABS: CREATININE 0.8 mg/dL (0.6-1.3); GFR ESTIMATE (CALCULATED) > 59 mL/min/ (58.99-99999); UREA NITROGEN (BUN) 25 mg/dL (9-23)
[2017-12-17] MEDS ORDERED: PREDNISONE10 MG PO (12:29)
[2017-12-18] VITALS (7 sets, daily range): BP systolic 104–151; BP diastolic 63–80
[2017-12-18 05:54] LABS: BASOPHIL (%) 0.1 % (0-1); EOSINOPHIL (%) 0 % (0-5); HEMATOCRIT 40.3 % (38.0-50.0); HEMOGLOBIN 12.1 G/DL (12.5-16.6); IMMATURE GRANULOCYTE (%) 0.5 % (0.0-0.7); LYMPHOCYTE (%) 1.6 % (15-42); LYMPHOCYTE COUNT 0.2 K/uL (1.0-2.8); MCH 31.2 PG (29.0-34.0); MCV 103.9 FL (86-99); MONOCYTE (%) 4.7 % (3-12); MONOCYTE COUNT 0.6 K/uL (0-0.8); NEUTROPHIL (%) 93.1 % (45-76); NEUTROPHIL COUNT 10.8 K/uL (1.8-6.4); PLATELET COUNT 189 K/uL (156-360); RBC DIS.WIDTH-CV 13.3 % (11.8-14.6); RBC DIS.WIDTH-SD 50.8 % (39-53); RED BLOOD COUNT 3.88 M/uL (4.00-5.50); WHITE BLOOD COUNT 11.6 K/uL (4.1-10.2)
[2017-12-18 06:11] LABS: CHLORIDE 95 MEQ/L (99-109); CREATININE 0.7 MG/DL (0.6-1.3); GFR ESTIMATE (CALCULATED) > 59 mL/min/ (58.99-99999); GLUCOSE 165 mg/dL (70-99); MAGNESIUM 2.5 mg/dl (1.3-2.7); POTASSIUM 4.1 MEQ/L (3.7-5.4); SODIUM 143 MEQ/L (136-147); UREA NITROGEN (BUN) 32 mg/dL (9-23)
[2017-12-18 06:33] LABS: CARBON DIOXIDE (BICARBONATE) > 40.0 MEQ/L (20-31)
[2017-12-19] VITALS: BP 120/70
[2017-12-19 02:00] VITALS: BP 136/62
[2017-12-19 04:00] VITALS: BP 120/51
[2017-12-19 05:27] LABS: HEMATOCRIT 42.2 % (38.0-50.0); HEMOGLOBIN 12.8 G/DL (12.5-16.6); MCH 31.8 PG (29.0-34.0); MCHC 30.3 G/DL (30.0-36.0); PLATELET COUNT 186 K/uL (156-360); RBC DIS.WIDTH-CV 13.2 % (11.8-14.6); RBC DIS.WIDTH-SD 51.5 % (39-53); RED BLOOD COUNT 4.02 M/uL (4.00-5.50); WHITE BLOOD COUNT 11.8 K/uL (4.1-10.2)
[2017-12-19 08:03] VITALS: BP 134/77
[2017-12-19 10:02] VITALS: BP 129/89
[2017-12-19 12:02] VITALS: BP 144/51
[2017-12-19] MEDS ORDERED: DOXYCYCLINE HY100 M3 PO (14:42)
[2017-12-19] MEDS ORDERED: DELTASONE20 M1 PO (14:44)
== END 2017-12-19 18:15 | disposition home health service (06) | DRG 208 ==
LOC: EME 10:44 → EDOF 13:14 → 4WEST 13:14 → ENRESERV 13:15 → 4WEST 14:43 → ENRESERV 12-19 14:23 → 4WEST 12-19 18:15
PROVIDERS: Emergency Medicine; Internal Medicine; Internal Medicine Critical Care Medicine; Internal Medicine Pulmonary Disease; Obstetrics & Gynecology; Specialist
PROC: 5A09357 Assistance with Respiratory Ventilation, Less than 24 Consecutive Hours, Continuous Positive Airway Pressure (ICD-10-PCS; principal; 2017-12-14)
PROC: 5A1945Z Respiratory Ventilation, 24-96 Consecutive Hours (ICD-10-PCS; 2017-12-14)
PROC: 0BH17EZ Insertion of Endotracheal Airway into Trachea, Via Natural or Artificial Opening (ICD-10-PCS; 2017-12-14)
PROC: 02HV33Z Insertion of Infusion Device into Superior Vena Cava, Percutaneous Approach (ICD-10-PCS; 2017-12-14)
DX: J96.21 Acute and chronic respiratory failure with hypoxia (principal); J44.1 Chronic obstructive pulmonary disease with (acute) exacerbation; E11.00 Type 2 diabetes mellitus with hyperosmolarity without nonketotic hyperglycemic-hyperosmolar coma (NKHHC); E87.2 Acidosis; Z99.81 Dependence on supplemental oxygen; J96.22 Acute and chronic respiratory failure with hypercapnia; I27.21 Secondary pulmonary arterial hypertension; I48.91 Unspecified atrial fibrillation; E66.2 Morbid (severe) obesity with alveolar hypoventilation; Z68.42 Body mass index [BMI] 45.0-49.9, adult; R60.9 Edema, unspecified; I10 Essential (primary) hypertension; Z79.01 Long term (current) use of anticoagulants; Z85.820 Personal history of malignant melanoma of skin; Z87.891 Personal history of nicotine dependence; Z79.84 Long term (current) use of oral hypoglycemic drugs
CPT/HCPCS: 31500; 36600; 71045; 71260; 71275; 80048; 80053; 81003; 82948; 83735; 84100; 84132 91; 84478; 84484; 85025; 85027; 85610; 85730; 87070; 87205; 87641; 93005; 93306; 94002; 94640; 94799; 99281; 99285; C1751; J0692; J1120; J1815; J2704; J2920; J2930; J7050; S0028